=== PATIENT | female | born 1960 | race Caucasian/White ===

== ENCOUNTER 2019-06-07 14:48 | Inpatient (IN) | payer OTHER ==
[2019-06-07 17:21] VITALS: BMI 19.8
--- NOTE | 2019-06-07 18:28 | HP ---
CIWA Score Nausea/Vomitin (vomiting x 1) Muscle Tremors: 4-Moderate,w/Arms Extend Anxiety: 4-Mod. Anxious/Guarded Agitation: 3 Paroxysmal Sweats: 2 Orientation: 0-Oriented Tacttile Disturbances: 0-None Auditory Disturbances: 0-None Visual Disturbances: 0-None Headache: 2-Mild CIWA-Ar Total Score: 17 - Admission Criteria OASAS Guidelines: Admission for Medically Managed Detox: Requires at least one of the followin. CIWA greater than 12 2. Seizures within the past 24 hours 3. Delirium tremens within the past 24 hours 4. Hallucinations within the past 24 hours 5. Acute intervention needed for co occurring medical disorder 6. Acute intervention needed for co occurring psychiatric disorder 7. Severe withdrawal that cannot be handled at a lower level of care (continued vomiting, continued diarrhea, abnormal vital signs) requiring intravenous medication and/or fluids 8. Admission ROS [facility] Chief Complaint: Seeking admission to detox Allergies/Adverse Reactions: Allergies Allergy/AdvReac Type Severity Reaction Status Date / Time No Known Allergies Allergy Verified 06/07/19 17:03 History of Present Illness: 58 years old female with a long history of alcohol dependence is seeking admission to detox. Patient reports that her last detox was at [facility] in 1995. this is her first admission in [facility]. She reports that she fell on 06/03 and was treated at [place], [place] where had an X-ray of pelvis, CT scan of the head and echocardiogram. She has swelling at the back of her head, 10 stitches(sutures) to right chin, ecchymosis to the left lower side , and abrasion to the left outer arm. She has medical history of breast cancer , (S/P lumpectomy 2017, chemo. [id number], on herceptin XRT) psych. history of depression and anxiety. She denies suicide attempt/ suicidal ideation at this time. 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 Patient has stitches to the right leg that needs to be removed on Monday, June 10, 2019. Exam Limitations: No Limitations, Physical Impairment (ambulates with a cane) - Ebola screening Have you traveled outside of the country in the last 21 days: No Have you been sick,other than usual withdrawal symptoms: No Do you have a fever: No - Review of Systems Constitutional: Chills, Malaise, Changes in sleep, Unexplained wgt Loss (H/O breast Ca) EENT: reports: Sinus Pressure Respiratory: reports: No Symptoms reported Cardiac: reports: No Symptoms Reported GI: reports: Nausea, Poor Appetite, Poor Fluid Intake, Vomiting (x 1), Abdominal cramping : reports: No Symptoms Reported Musculoskeletal: reports: Joint Pain, Other (hip pain and right chin pain from a fall) Integumentary: reports: Dryness, Flushing Neuro: reports: Headache, Tremors Endocrine: reports: No Symptoms Reported Hematology: reports: No Symptoms Reported Psychiatric: reports: Mood/Affect Appropiate, Orientated x3, Anxious, Depressed Other Systems: Reviewed and Negative Patient History - Patient Medical History Hx Anemia: No Hx Asthma: No Hx Chronic Obstructive Pulmonary Disease (COPD): No Hx Cancer: Yes (Breast Cancer. On remission medication) Hx Cardiac Disorders: No Hx Congestive Heart Failure: No Hx Hypertension: No Hx Hypercholesterolemia: No Hx Pacemaker: No HX Cerebrovascular Accident: No Hx Seizures: No Hx Dementia: No Hx Diabetes: No Hx Gastrointestinal Disorders: No Hx Liver Disease: No Hx Genitourinary Disorders: No Hx Sexually Transmitted Disorders: No Hx Renal Disease (ESRD): No Hx Thyroid Disease: No Hx Human Immunodeficiency Virus (HIV): No (Negative May 2018) Hx Hepatitis C: No Hx Depression: Yes (Wellbutrin) Hx Suicide Attempt: No (Denies suicidal ideation) Hx Bipolar Disorder: No Hx Schizophrenia: No Other Medical History: Anxiety -Lexapro - Patient Surgical History Past Surgical History: Yes Hx Neurologic Surgery: No Hx Cataract Extraction: No Hx Cardiac Surgery: No Hx Lung Surgery: No Hx Breast Surgery: Yes (Lumpectomy 2016) Hx Breast Biopsy: Yes Hx Abdominal Surgery: No Hx Appendectomy: No Hx Cholecystectomy: No Hx Genitourinary Surgery: No Hx Section: No Hx Orthopedic Surgery: No Hx Hysterectomy: No Anesthesia Reaction: No - PPD History Previous Implant?: Yes Documented Results: Negative w/o proof Implanted On Prior [facility] Admission?: No PPD to be Administered?: Yes - Reproductive History Patient is a Female of Child Bearing Age (11 -55 yrs old): Yes LMP comment: Menopausal - Smoking Cessation Smoking history: Current some day smoker Have you smoked in the past 12 months: Yes Aproximately how many cigarettes per day: 2 Hx Chewing Tobacco Use: No Initiated information on smoking cessation: Yes 'Breaking Loose' booklet given: 06/07/19 - Substance & Tx. History Hx Alcohol Use: Yes Hx Substance Use: Yes Substance Use Type: Alcohol, Cocaine, Marijuana Hx Substance Use Treatment: Yes ([facility]) - Substances abused Alcohol Substance route: Oral Frequency: Daily Amount used: 5 ounces of vodka/ much more lately Age of first use: 17 Date of last use: 06/06/19 Marijuana/Hashish Substance route: Smoking Frequency: 3-6 times per week Amount used: 1 head of a ball Age of first use: 18 Date of last use: 06/07/19 Admission Physical Exam [facility] - Vital Signs Vital Signs: Vital Signs - 24 hr 06/07/19 06/07/19 17:13 17:29 Temperature 98.6 F 98.6 F Pulse Rate 111 H 111 H Respiratory 18 18 Rate Blood Pressure 150/97 150/97 - Physical General Appearance: Yes: Moderate Distress, Tremorous, Sweating, Anxious HEENTM: Yes: Nasal Congestion, Rhinorrhea Respiratory: Yes: Lungs Clear, Normal Breath Sounds, No Respiratory Distress Neck: Yes: Within Normal Limits Breast: Yes: Breast Exam Deferred, Surgical Scar (Lumpectomy left breast) Cardiology: Yes: Tachycardia Abdominal: Yes: Normal Bowel Sounds Genitourinary: Yes: Within Normal Limits Back: Yes: Normal Inspection Musculoskeletal: Yes: Muscle Pain, Other (hip pain and right chin pain from a fall) Extremities: Yes: Tremors Neurological: Yes: Within Normal Limits, Alert Integumentary: Yes: Warm Lymphatic: Yes: Within Normal Limits - Diagnostic (1) Alcohol dependence with withdrawal, uncomplicated Current Visit: Yes Status: Acute (2) Cannabis dependence with withdrawal Current Visit: Yes Status: Acute (3) Cancer of left breast Current Visit: Yes Status: Chronic Qualifiers: Estrogen receptor status: unspecified Patient sex: female (4) Nicotine dependence Current Visit: Yes Status: Chronic Qualifiers: Nicotine product type: cigarettes Substance use status: uncomplicated Qualified Code(s): F17.210 - Nicotine dependence, cigarettes, uncomplicated Cleared for Admission [facility] - Detox or Rehab [facility] Level of Care: Medically Managed Detox Regimen/Protocol: Librium Claeared for Rehab Admission: No Breathalyzer - Breathalyzer Breathalyzer: 0 Urine Drug Screen - Test Device Lot number: [id number] Expiration date: 03/21/21 - Control Is test valid?: Yes - Results Drug screen NEGATIVE: No Urine drug screen results: THC-Marijuana, BZO-Benzodiazepines Inpatient Rehab Admission - Rehab Decision to Admit Inpatient rehab admission?: No
[2019-06-07] MEDS ORDERED: hydrOXYzine PAMOATE 25 MG CAPSULE (FP) PO PRN (18:59)
[2019-06-07] MEDS ORDERED: BISMUTH SUBSALICYLATE 524 MG/30 ML UD PO PRN (18:59)
[2019-06-07] MEDS ORDERED: MAGNESIUM CITRATE 300 ML BOTTLE PO PRN (18:59)
[2019-06-07] MEDS ORDERED: ACETAMINOPHEN 325 MG TABLET (FP) PO PRN (18:59)
[2019-06-07] MEDS ORDERED: NICOTINE POLACRILEX 2 MG GUM BUC PRN (18:59)
[2019-06-07] MEDS ORDERED: MENTHOL/PHENOL 1 EACH UD MM PRN (18:59)
[2019-06-07] MEDS ORDERED: IBUPROFEN 400 MG TABLET (FP) PO PRN (18:59)
[2019-06-07] MEDS ORDERED: MAGNESIUM HYDROX 2400MG/30ML ORAL SUSPENSION 30 ML CUP PO PRN (18:59)
[2019-06-07] MEDS ORDERED: MAG HYDROX/AL HYDROX/SIMETH 30 ML UNIT-DOSE CUP PO PRN (18:59)
[2019-06-07] MEDS: chlordiazePOXIDE HCL 10 MG CAPSULE PO PRN (20:16)
[2019-06-07] MEDS ORDERED: BACITRACIN 15 GM TUBE TOPICAL OINTMENT TP SCH (22:00)
[2019-06-07] MEDS: BACITRACIN 0.9 GM PACKET TP SCH (22:01)
[2019-06-07] MEDS: THIAMINE HCL 100 MG TABLET (FP) PO SCH (22:01)
[2019-06-07] MEDS: MELATONIN 5 MG TABLETS PO PRN (22:02)
[2019-06-07] MEDS: chlordiazePOXIDE HCL 25 MG CAPSULE PO SCH (22:02)
[2019-06-08] MEDS: chlordiazePOXIDE HCL 25 MG CAPSULE PO SCH ×3 (05:41→22:04)
[2019-06-08] MEDS: BACITRACIN 0.9 GM PACKET TP SCH ×2 (09:58→22:04)
[2019-06-08] MEDS: chlordiazePOXIDE HCL 10 MG CAPSULE PO PRN (09:58)
[2019-06-08] MEDS: NICOTINE 14 MG/24 HOURS TOPICAL PATCH TD SCH (09:59)
[2019-06-08] MEDS: PRENATAL VITAMINS W/ FOLIC ACID TABLET (FP) PO SCH (09:59)
[2019-06-08 10:29] LABS: HEMATOCRIT 32.5 % (32.4-45.2); HEMOGLOBIN 10.8 GM/dL (10.7-15.3); MCHC 33.4 g/dl (32.0-36.0); MEAN CELL VOLUME 101.8 fl (80-96); MEAN PLT VOLUME 7.4 fl (7.5-11.1); PLATELET COUNT 208 K/MM3 (134-434); RBC 3.19 M/mm3 (3.60-5.2); RDW 15.2 % (11.6-15.6); WHITE BLOOD COUNT 4.7 K/mm3 (4.0-10.0)
[2019-06-08 10:39] LABS: ALBUMIN 3.1 g/dl (3.4-5.0); BILIRUBIN,TOTAL 0.5 mg/dL (0.2-1); BLOOD UREA NITROGEN 12.8 mg/dL (7-18); CALCIUM 8.4 mg/dL (8.5-10.1); CREATININE 0.6 mg/dL (0.55-1.3); POTASSIUM 4.1 mmol/L (3.5-5.1); TOT PROT 5.5 g/dl (6.4-8.2)
--- NOTE | 2019-06-08 10:45 | EKG ---
Test Reason : Blood Pressure : / mmHG Vent. Rate : 097 BPM Atrial Rate : 097 BPM P-R Int : 114 ms QRS Dur : 086 ms QT Int : 378 ms P-R-T Axes : 036 049 053 degrees QTc Int : 480 ms NORMAL SINUS RHYTHM PROLONGED QT ABNORMAL ECG NO PREVIOUS ECGS AVAILABLE Confirmed by Pino Rojas MD ([id number]) on 06/08/2019 10:44:39 AM Referred By: TALIA Confirmed By:Pino Rojas MD
--- NOTE | 2019-06-08 12:32 | PN ---
S CIWA - CIWA Score Nausea/Vomitin-Mild Nausea/No Vomiting Muscle Tremors: 4-Moderate,w/Arms Extend Anxiety: 4-Mod. Anxious/Guarded Agitation: 0-Normal Activity Paroxysmal Sweats: 2 Orientation: 0-Oriented Tacttile Disturbances: 1-Very Mild Itch/Numbness Auditory Disturbances: 0-None Visual Disturbances: 1-Very Mild Sensitivity Headache: 0-None Present CIWA-Ar Total Score: 13 [facility] Progress Note (SOAP) Subjective: 58 years old female admitted on 06/07/19 for alcohol withdrawal sx management treating with libruim regiment ambulating on hallway social with peers in day room encourage the patient using cane when walking around the hallway patient fell around 06/03/19 left inferior orbital bruise, left fore arm and right anterior skin abrasion encourage bacitracine ointment keep area clear and dry Objective: 06/08/19 12:39 Vital Signs Temperature 97.0 F L 06/08/19 09:15 Pulse Rate 86 06/08/19 09:15 Respiratory Rate 16 06/08/19 09:15 Blood Pressure 119/82 06/08/19 09:15 O2 Sat by Pulse Oximetry (%) Laboratory Last Values WBC 4.7 K/mm3 (4.0-10.0) 06/08/19 07:45 RBC 3.19 M/mm3 (3.60-5.2) L 06/08/19 07:45 Hgb 10.8 GM/dL (10.7-15.3) 06/08/19 07:45 Hct 32.5 % (32.4-45.2) 06/08/19 07:45 MCV 101.8 fl (80-96) H 06/08/19 07:45 MCH 34.0 pg (25.7-33.7) H 06/08/19 07:45 MCHC 33.4 g/dl (32.0-36.0) 06/08/19 07:45 RDW 15.2 % (11.6-15.6) 06/08/19 07:45 Plt Count 208 K/MM3 (134-434) 06/08/19 07:45 MPV 7.4 fl (7.5-11.1) L 06/08/19 07:45 Sodium 141 mmol/L (136-145) 06/08/19 07:45 Potassium 4.1 mmol/L (3.5-5.1) 06/08/19 07:45 Chloride 107 mmol/L (98-107) 06/08/19 07:45 Carbon Dioxide 30 mmol/L (21-32) 06/08/19 07:45 Anion Gap 4 MMOL/L (8-16) L 06/08/19 07:45 BUN 12.8 mg/dL (7-18) 06/08/19 07:45 Creatinine 0.6 mg/dL (0.55-1.3) 06/08/19 07:45 Est GFR (CKD-EPI)AfAm 114.82 06/08/19 07:45 Est GFR (CKD-EPI)NonAf 99.07 06/08/19 07:45 Random Glucose 104 mg/dL (74-106) 06/08/19 07:45 Calcium 8.4 mg/dL (8.5-10.1) L 06/08/19 07:45 Total Bilirubin 0.5 mg/dL (0.2-1) 06/08/19 07:45 AST 17 U/L (15-37) 06/08/19 07:45 ALT 15 U/L (13-61) 06/08/19 07:45 Alkaline Phosphatase 45 U/L (45-117) 06/08/19 07:45 Total Protein 5.5 g/dl (6.4-8.2) L 06/08/19 07:45 Albumin 3.1 g/dl (3.4-5.0) L 06/08/19 07:45 RPR Titer Nonreactive (NONREACTIVE) 06/08/19 07:45 lab noted Assessment: 06/08/19 12:39 alcohol withdrawal Plan: librium regiment
--- NOTE | 2019-06-08 13:23 | EKG ---
Test Reason : Blood Pressure : / mmHG Vent. Rate : 073 BPM Atrial Rate : 073 BPM P-R Int : 132 ms QRS Dur : 082 ms QT Int : 410 ms P-R-T Axes : 053 055 057 degrees QTc Int : 451 ms NORMAL SINUS RHYTHM NORMAL ECG WHEN COMPARED WITH ECG OF 07-JUN-2019 19:16, NONSPECIFIC T WAVE ABNORMALITY NO LONGER EVIDENT IN ANTERIOR LEADS Confirmed by MD Art, Kenn ([id number]) on 06/08/2019 1:22:51 PM Referred By: Confirmed By:Kenn Cordova MD
[2019-06-08] MEDS: PATIENT'S OWN MEDICATION (NON-FORMULARY) (Anastrozole [Arimidex -] 1 MG) PO SCH (14:47)
[2019-06-08] MEDS: ACETAMINOPHEN 325 MG TABLET (FP) PO PRN (15:11)
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
[2019-06-08] MEDS ORDERED: GABAPENTIN 300 MG CAPSULE PO SCH (22:00)
[2019-06-08] MEDS: THIAMINE HCL 100 MG TABLET (FP) PO SCH (22:04)
[2019-06-08] MEDS: MELATONIN 5 MG TABLETS PO PRN (23:58)
[2019-06-09] MEDS: chlordiazePOXIDE 5 MG CAPSULE PO SCH ×3 (05:51→22:12)
--- NOTE | 2019-06-09 09:36 | PN ---
S Progress Note Note: Psychiatry Attending's note (follow-up) : [employer] Repairer contacted pharmacist at [facility] # [id number]. For verification of medications ([phone]). Confirmed refills for : gabapentin 300 mg/hs trazodone 50 mg/hs wellbutrin XL 300 mg/hs lexapro 10 mg/day All filled in May 2019. Contact made this morning.
[2019-06-09] MEDS: ESCITALOPRAM OXALATE 10 MG TABLET PO SCH (10:35)
[2019-06-09] MEDS: PRENATAL VITAMINS W/ FOLIC ACID TABLET (FP) PO SCH (10:35)
[2019-06-09] MEDS: PATIENT'S OWN MEDICATION (NON-FORMULARY) (Anastrozole [Arimidex -] 1 MG) PO SCH (10:35)
[2019-06-09] MEDS: BACITRACIN 0.9 GM PACKET TP SCH ×2 (10:35→22:12)
[2019-06-09] MEDS: NICOTINE 14 MG/24 HOURS TOPICAL PATCH TD SCH (10:37)
--- NOTE | 2019-06-09 11:48 | PN ---
S CIWA - CIWA Score Nausea/Vomitin-Mild Nausea/No Vomiting Muscle Tremors: 3 Anxiety: 3 Agitation: 0-Normal Activity Paroxysmal Sweats: 2 Orientation: 0-Oriented Tacttile Disturbances: 0-None Auditory Disturbances: 0-None Visual Disturbances: 0-None Headache: 1-Very Mild CIWA-Ar Total Score: 10 S Progress Note (SOAP) Subjective: 58 years old female admitted on 06/07/19 for alcohol withdrawal sx management treating with librium detox regiment ambulating without cane encourage the patient to use cane when ambulating on the unit requests to be seen by a psychiatrist that "I want my trazadone" psychiatrist progress noted is appreciated psychiatric consultation referral for psychotropic medication Objective: 06/09/19 11:51 Vital Signs Temperature 96.4 F L 06/09/19 08:31 Pulse Rate 75 06/09/19 08:31 Respiratory Rate 18 06/09/19 08:31 Blood Pressure 109/64 06/09/19 08:31 O2 Sat by Pulse Oximetry (%) Laboratory Last Values WBC 4.7 K/mm3 (4.0-10.0) 06/08/19 07:45 RBC 3.19 M/mm3 (3.60-5.2) L 06/08/19 07:45 Hgb 10.8 GM/dL (10.7-15.3) 06/08/19 07:45 Hct 32.5 % (32.4-45.2) 06/08/19 07:45 MCV 101.8 fl (80-96) H 06/08/19 07:45 MCH 34.0 pg (25.7-33.7) H 06/08/19 07:45 MCHC 33.4 g/dl (32.0-36.0) 06/08/19 07:45 RDW 15.2 % (11.6-15.6) 06/08/19 07:45 Plt Count 208 K/MM3 (134-434) 06/08/19 07:45 MPV 7.4 fl (7.5-11.1) L 06/08/19 07:45 Sodium 141 mmol/L (136-145) 06/08/19 07:45 Potassium 4.1 mmol/L (3.5-5.1) 06/08/19 07:45 Chloride 107 mmol/L (98-107) 06/08/19 07:45 Carbon Dioxide 30 mmol/L (21-32) 06/08/19 07:45 Anion Gap 4 MMOL/L (8-16) L 06/08/19 07:45 BUN 12.8 mg/dL (7-18) 06/08/19 07:45 Creatinine 0.6 mg/dL (0.55-1.3) 06/08/19 07:45 Est GFR (CKD-EPI)AfAm 114.82 06/08/19 07:45 Est GFR (CKD-EPI)NonAf 99.07 06/08/19 07:45 Random Glucose 104 mg/dL (74-106) 06/08/19 07:45 Calcium 8.4 mg/dL (8.5-10.1) L 06/08/19 07:45 Total Bilirubin 0.5 mg/dL (0.2-1) 06/08/19 07:45 AST 17 U/L (15-37) 06/08/19 07:45 ALT 15 U/L (13-61) 06/08/19 07:45 Alkaline Phosphatase 45 U/L (45-117) 06/08/19 07:45 Total Protein 5.5 g/dl (6.4-8.2) L 06/08/19 07:45 Albumin 3.1 g/dl (3.4-5.0) L 06/08/19 07:45 RPR Titer Nonreactive (NONREACTIVE) 06/08/19 07:45 lab noted Assessment: 06/09/19 11:51 alcohol withdrawal Plan: librium regiment
[2019-06-09] MEDS: ACETAMINOPHEN 325 MG TABLET (FP) PO PRN (12:59)
[2019-06-09] MEDS ORDERED: GABAPENTIN 300 MG CAPSULE PO SCH (13:17)
[2019-06-09] MEDS: FERROUS SO4 325 MG TABLET (FP) PO SCH (14:26)
--- NOTE | 2019-06-09 16:27 | PN ---
Psychiatric Progress Note Vital Signs: Vital Signs Period Temp Pulse Resp BP Sys/Valderrama Pulse Ox Last 24 Hr 96.4 F-98.0 F 75-89 16-18 109-123/64-83 Date of Session: 06/09/19 Chief Complaint:: " Can we go over my medications." HPI: Patient admitted to for alcohol and nicotine dependence. Consultation ordered to address insomnia. ROS: Patient is calm + cooperative, alert + oriented X3. Current Medications: Active Medications Generic Name Dose Route Start Last Admin Trade Name Freq PRN Reason Stop Dose Admin Acetaminophen 650 mg 06/07/19 18:59 06/09/19 12:59 Tylenol - PO 650 mg Q6H PRN Administration PAIN LEVEL 4 - 6 Acetaminophen 650 mg 06/07/19 18:59 Tylenol - PO Q6H PRN FEVER Al Hydroxide/Mg Hydroxide 30 ml 06/07/19 18:59 Mylanta Oral Suspension - PO Q6H PRN DYSPEPSIA Bacitracin 0.9 gm 06/07/19 22:00 06/09/19 10:35 Bacitracin - TP 0.9 gm BID NANI Administration Bismuth Subsalicylate 524 mg 06/07/19 18:59 Pepto-Bismol - PO Q1H PRN DIARRHEA Chlordiazepoxide HCl 10 mg 06/10/19 00:00 Librium - PO 06/10/19 23:59 Q12H PRN Signs/symptoms of Withdrawal Chlordiazepoxide HCl 10 mg 06/07/19 19:06 06/08/19 09:58 Librium - PO 06/09/19 23:59 10 mg Q8H PRN Administration Signs/symptoms of Withdrawal Chlordiazepoxide HCl 15 mg 06/09/19 05:00 06/09/19 12:55 Librium - PO 06/09/19 21:01 15 mg Q8H NANI Administration Chlordiazepoxide HCl 10 mg 06/10/19 05:00 Librium - PO 06/10/19 21:01 Q8H NANI Chlordiazepoxide HCl 10 mg 06/11/19 05:00 Librium - PO 06/11/19 05:01 ONCE ONE Escitalopram Oxalate 10 mg 06/09/19 10:00 06/09/19 10:35 Lexapro - PO 10 mg DAILY NANI Administration Eucalyptus/Menthol/Phenol/Sorbitol 1 each 06/07/19 18:59 Cepastat Lozenge - MM 06/13/19 19:00 Q4H PRN SORE THROAT Ferrous Sulfate 325 mg 06/09/19 13:15 06/09/19 14:26 Feosol - PO 325 mg DAILY NANI Administration Gabapentin 400 mg 06/09/19 13:17 Neurontin - PO HS NANI Hydroxyzine Pamoate 25 mg 06/07/19 18:59 Vistaril - PO 06/13/19 19:00 Q6H PRN For Anxiety Ibuprofen 400 mg 06/07/19 18:59 Motrin - PO Q6H PRN PAIN LEVEL 1 - 3 Magnesium Citrate 300 ml 06/07/19 18:59 Citroma - PO Q48H PRN CONSTIPATION Magnesium Hydroxide 30 ml 06/07/19 18:59 Milk Of Magnesia - PO PRN PRN CONSTIPATION Melatonin 5 mg 06/07/19 22:00 06/08/19 23:58 Melatonin PO 5 mg HS PRN Administration INSOMNIA Methocarbamol 500 mg 06/07/19 18:59 Robaxin - PO 06/13/19 19:00 Q6H PRN MUSCLE SPASMS Nicotine 14 mg 06/08/19 10:00 06/09/19 10:37 Nicoderm Patch - TD Not Given DAILY [facility] Nicotine Polacrilex 2 mg 06/07/19 18:59 Nicorette Gum - BUC Q2H PRN NICOTINE REPLACEMENT RX Non-Formulary Medication 1 mg 06/08/19 10:00 06/09/19 10:35 Anastrozole [Arimidex -] PO 1 mg DAILY NANI Administration Multivit/Folic Acid/Iron 1 tab 06/08/19 10:00 06/09/19 10:35 Vitamins ([facility]) - PO 1 tab DAILY NANI Administration Thiamine HCl 100 mg 06/07/19 22:00 06/08/19 22:04 Vitamin B1 - PO 100 mg HS [facility] Administration Trazodone HCl 50 mg 06/09/19 22:00 Desyrel - PO HS [facility] Medication(s) Change(s): Yes. Will add Trazodone 50mg HS. Current Side Effect: No Lab tests ordered: No Lab tests reviewed: Yes Provider note:: Patient seen by Dr. Almonte for intial psychiatric consultation. Dr. Almonte note read and appreciated. Patient requesting trazodone for insomnia. Trazodone dose was held upon intial consultation due to risk of oversedation. Patient reports poor sleep last night. Patient observed to be fully awake, ambulating on unit and socializing with her peers. Will order Trazodone 50mg HS. Benefits and side effects discussed. Verbal consent given. Total face to face time:: 25 Mental Status Exam - Mental Status Exam Alert and Oriented to: Time, Place, Person Cognitive Function: Good Patient Appearance: Well Groomed Mood: Euthymic Affect: Mood Congruent Patient Behavior: Appropriate, Cooperative Speech Pattern: Appropriate Voice Loudness: Normal Thought Process: Intact, Goal Oriented Thought Disorder: Not Present Hallucinations: Denies Suicidal Ideation: Denies Homicidal Ideation: Denies Insight/Judgement: Poor Sleep: Poorly Appetite: Fair Muscle strength/Tone: Normal Gait/Station: Normal Psychiatric Treatment Plan - Problem List (1) Alcohol dependence with withdrawal, uncomplicated Current Visit: Yes (2) Cannabis dependence Current Visit: Yes (3) Insomnia Current Visit: Yes (4) Nicotine dependence Current Visit: Yes Qualifiers: Nicotine product type: cigarettes Substance use status: uncomplicated Qualified Code(s): F17.210 - Nicotine dependence, cigarettes, uncomplicated (5) Substance induced mood disorder Current Visit: Yes (6) History of depression Current Visit: Yes
[2019-06-09] MEDS: THIAMINE HCL 100 MG TABLET (FP) PO SCH ×2 (22:11→23:29)
[2019-06-09] MEDS: traZODone HCL 50 MG TABLET (FP) PO SCH (22:12)
[2019-06-09] MEDS ORDERED: GABAPENTIN 400 MG CAPSULE PO SCH (22:15)
[2019-06-09] MEDS: MELATONIN 5 MG TABLETS PO PRN (22:17)
[2019-06-09] MEDS: GABAPENTIN 400 MG CAPSULE PO SCH (22:38)
[2019-06-10] MEDS ORDERED: chlordiazePOXIDE HCL 10 MG CAPSULE PO PRN
[2019-06-10] MEDS: chlordiazePOXIDE HCL 10 MG CAPSULE PO SCH ×3 (05:22→22:14)
[2019-06-10] MEDS: FERROUS SO4 325 MG TABLET (FP) PO SCH (10:19)
[2019-06-10] MEDS: PRENATAL VITAMINS W/ FOLIC ACID TABLET (FP) PO SCH (10:19)
[2019-06-10] MEDS: ESCITALOPRAM OXALATE 10 MG TABLET PO SCH (10:19)
[2019-06-10] MEDS: NICOTINE 14 MG/24 HOURS TOPICAL PATCH TD SCH (10:20)
[2019-06-10] MEDS: BACITRACIN 0.9 GM PACKET TP SCH ×2 (10:20→22:14)
[2019-06-10] MEDS: PATIENT'S OWN MEDICATION (NON-FORMULARY) (Anastrozole [Arimidex -] 1 MG) PO SCH (10:21)
--- NOTE | 2019-06-10 11:53 | PN ---
Psychiatric Progress Note Vital Signs: Vital Signs Period Temp Pulse Resp BP Sys/Valderrama Pulse Ox Last 24 Hr 96.1 F-97.6 F 64-85 14-19 99-113/53-75 Date of Session: 06/10/19 Chief Complaint:: " Will I get my wellbutrin ? " HPI: Day 4 of detoxification treatment. Patient is doing well. No adverse effects from medication regimen. Follow-up is for re-evaluation of medications. ROS: Unremarkable. Patient is observed as ambulatory (with and without cane). Current Medications: Active Medications Generic Name Dose Route Start Last Admin Trade Name Freq PRN Reason Stop Dose Admin Acetaminophen 650 mg 06/07/19 18:59 06/09/19 12:59 Tylenol - PO 650 mg Q6H PRN Administration PAIN LEVEL 4 - 6 Acetaminophen 650 mg 06/07/19 18:59 Tylenol - PO Q6H PRN FEVER Al Hydroxide/Mg Hydroxide 30 ml 06/07/19 18:59 Mylanta Oral Suspension - PO Q6H PRN DYSPEPSIA Bacitracin 0.9 gm 06/07/19 22:00 06/10/19 10:20 Bacitracin - TP 0.9 gm BID NANI Administration Bismuth Subsalicylate 524 mg 06/07/19 18:59 Pepto-Bismol - PO Q1H PRN DIARRHEA Bupropion HCl 150 mg 06/10/19 12:00 Wellbutrin Xl - PO DAILY NANI Chlordiazepoxide HCl 10 mg 06/10/19 00:00 Librium - PO 06/10/19 23:59 Q12H PRN Signs/symptoms of Withdrawal Chlordiazepoxide HCl 10 mg 06/10/19 05:00 06/10/19 05:22 Librium - PO 06/10/19 21:01 10 mg Q8H NANI Administration Chlordiazepoxide HCl 10 mg 06/11/19 05:00 Librium - PO 06/11/19 05:01 ONCE ONE Escitalopram Oxalate 10 mg 06/09/19 10:00 06/10/19 10:19 Lexapro - PO 10 mg DAILY NANI Administration Eucalyptus/Menthol/Phenol/Sorbitol 1 each 06/07/19 18:59 Cepastat Lozenge - MM 06/13/19 19:00 Q4H PRN SORE THROAT Ferrous Sulfate 325 mg 06/09/19 13:15 06/10/19 10:19 Feosol - PO 325 mg DAILY NANI Administration Gabapentin 400 mg 06/09/19 22:45 06/09/19 22:38 Neurontin - PO 400 mg HS NANI Administration Hydroxyzine Pamoate 25 mg 06/07/19 18:59 06/09/19 22:40 Vistaril - PO 06/13/19 19:00 25 mg Q6H PRN Administration For Anxiety Ibuprofen 400 mg 06/07/19 18:59 Motrin - PO Q6H PRN PAIN LEVEL 1 - 3 Magnesium Citrate 300 ml 06/07/19 18:59 Citroma - PO Q48H PRN CONSTIPATION Magnesium Hydroxide 30 ml 06/07/19 18:59 Milk Of Magnesia - PO PRN PRN CONSTIPATION Melatonin 5 mg 06/07/19 22:00 06/09/19 22:17 Melatonin PO 5 mg HS PRN Administration INSOMNIA Methocarbamol 500 mg 06/07/19 18:59 Robaxin - PO 06/13/19 19:00 Q6H PRN MUSCLE SPASMS Nicotine 14 mg 06/08/19 10:00 06/10/19 10:20 Nicoderm Patch - TD Not Given DAILY NANI Nicotine Polacrilex 2 mg 06/07/19 18:59 Nicorette Gum - BUC Q2H PRN NICOTINE REPLACEMENT RX Non-Formulary Medication 1 mg 06/08/19 10:00 06/10/19 10:21 Anastrozole [Arimidex -] PO 1 mg DAILY NANI Administration Multivit/Folic Acid/Iron 1 tab 06/08/19 10:00 06/10/19 10:19 Vitamins (Sjr) - PO 1 tab DAILY NANI Administration Thiamine HCl 100 mg 06/07/19 22:00 06/09/19 23:29 Vitamin B1 - PO Not Given HS NANI Trazodone HCl 50 mg 06/09/19 22:00 06/09/19 22:12 Desyrel - PO 50 mg HS NANI Administration Medication(s) Change(s): Wellbutrin XL 150 mg po daily. Resumed at patient's request. Side effects/benefits discussed with patient. Made aware of risk of seizures. Ms May agrees with this plan of care. Current Side Effect: No Lab tests ordered: No Lab tests reviewed: Yes Provider note:: Chart reviewed. Note from sprinkler fitter Ren : read and appreciated. Patient is interviewed (medical students in attendance, with patient's permission). Patient reports feeling well. Considerably less anxious and more cooperative. Appears well rested. Walks with steady gait. Observed as active and sociable. Goal-directed. Euthymic. Not suicidal or homicidal. Cognitively intact. Stable mental status. See MSE report for details. Unremarkable hospital course. Total face to face time:: 25 Mental Status Exam - Mental Status Exam Alert and Oriented to: Time, Place, Person Cognitive Function: Good Patient Appearance: Well Groomed Mood: Hopeful, Euthymic Affect: Appropriate, Normal Range Patient Behavior: Appropriate, Cooperative Speech Pattern: Clear, Appropriate Voice Loudness: Normal Thought Process: Intact, Goal Oriented Thought Disorder: Not Present Hallucinations: Denies Suicidal Ideation: Denies Homicidal Ideation: Denies Insight/Judgement: Fair Sleep: Well Appetite: Good Gait/Station: Normal Psychiatric Treatment Plan - Problem List (1) Alcohol dependence with withdrawal, uncomplicated Current Visit: Yes Comment: . (2) Cannabis dependence Current Visit: Yes Comment: . (3) Nicotine dependence Current Visit: Yes Qualifiers: Nicotine product type: cigarettes Substance use status: uncomplicated Qualified Code(s): F17.210 - Nicotine dependence, cigarettes, uncomplicated Comment: . (4) Substance induced mood disorder Current Visit: Yes Comment: . (5) History of depression Current Visit: Yes Comment: . (6) Insomnia Current Visit: Yes Comment: .
[2019-06-10] MEDS: ACETAMINOPHEN 325 MG TABLET (FP) PO PRN (13:13)
[2019-06-10] MEDS: METHOCARBAMOL 500 MG TABLET PO PRN ×2 (13:27→22:18)
--- NOTE | 2019-06-10 14:33 | PN ---
S CIWA - CIWA Score Nausea/Vomitin-Mild Nausea/No Vomiting Muscle Tremors: 1-None Visible, but [place] Anxiety: 1-Mildly Anxious Agitation: 1-Slight > Activity Paroxysmal Sweats: No Perspiration Orientation: 0-Oriented Tacttile Disturbances: 1-Very Mild Itch/Numbness Auditory Disturbances: 0-None Visual Disturbances: 0-None Headache: 1-Very Mild CIWA-Ar Total Score: 6 [facility] Progress Note (SOAP) Subjective: alert,irritable,interrupted sleep, Objective: 06/10/19 14:31 Vital Signs Temperature 97.9 F 06/10/19 12:52 Pulse Rate 76 06/10/19 12:52 Respiratory Rate 18 06/10/19 12:52 Blood Pressure 102/65 06/10/19 12:52 O2 Sat by Pulse Oximetry (%) Assessment: 06/10/19 14:32 withdrawal symptom Plan: continue detox lbrium regimen,discharge in am
[2019-06-10] MEDS: THIAMINE HCL 100 MG TABLET (FP) PO SCH (22:15)
[2019-06-10] MEDS: traZODone HCL 50 MG TABLET (FP) PO SCH (22:15)
[2019-06-10] MEDS: GABAPENTIN 400 MG CAPSULE PO SCH (22:15)
[2019-06-10] MEDS: MELATONIN 5 MG TABLETS PO PRN (22:17)
[2019-06-11] MEDS ORDERED: chlordiazePOXIDE HCL 10 MG CAPSULE PO ONE (05:00)
[2019-06-11 06:39] VITALS: TEMP 97.1
[2019-06-11 07:55] VITALS: BP 104/65; PULSE 109
--- NOTE | 2019-06-11 12:42 | DS ---
[facility] Detox Discharge Summary Admission Date: 06/07/19 Discharge Date: 06/11/19 - History Present History: Alcohol Dependence, Cannabis Dependence, Cocaine Dependence Additional Comments: Pt is medically cleared and discharged today. Pt completed the detox protocol. Pt is encouraged to follow-up with an outpatient CD program and also to follow- up with her pmd. Pt verbalized understanding of the information given. Pt is alert and oriented x3 and in no respiratory distress. Pertinent Past History: H/o alcohol, cocaine, and cannabis use disorder. - Physical Exam Results Vital Signs: Vital Signs Temperature 97.1 F L 06/11/19 07:47 Pulse Rate 109 H 06/11/19 07:47 Respiratory Rate 18 06/11/19 07:47 Blood Pressure 104/65 06/11/19 07:47 O2 Sat by Pulse Oximetry (%) Vital Signs 06/11/19 06/11/19 05:34 07:47 Temperature 97.1 F L 97.1 F L Pulse Rate 75 109 H Respiratory 18 18 Rate Blood Pressure 93/87 104/65 Laboratory Last Values WBC 4.7 K/mm3 (4.0-10.0) 06/08/19 07:45 RBC 3.19 M/mm3 (3.60-5.2) L 06/08/19 07:45 Hgb 10.8 GM/dL (10.7-15.3) 06/08/19 07:45 Hct 32.5 % (32.4-45.2) 06/08/19 07:45 MCV 101.8 fl (80-96) H 06/08/19 07:45 MCH 34.0 pg (25.7-33.7) H 06/08/19 07:45 MCHC 33.4 g/dl (32.0-36.0) 06/08/19 07:45 RDW 15.2 % (11.6-15.6) 06/08/19 07:45 Plt Count 208 K/MM3 (134-434) 06/08/19 07:45 MPV 7.4 fl (7.5-11.1) L 06/08/19 07:45 Sodium 141 mmol/L (136-145) 06/08/19 07:45 Potassium 4.1 mmol/L (3.5-5.1) 06/08/19 07:45 Chloride 107 mmol/L (98-107) 06/08/19 07:45 Carbon Dioxide 30 mmol/L (21-32) 06/08/19 07:45 Anion Gap 4 MMOL/L (8-16) L 06/08/19 07:45 BUN 12.8 mg/dL (7-18) 06/08/19 07:45 Creatinine 0.6 mg/dL (0.55-1.3) 06/08/19 07:45 Est GFR (CKD-EPI)AfAm 114.82 06/08/19 07:45 Est GFR (CKD-EPI)NonAf 99.07 06/08/19 07:45 Random Glucose 104 mg/dL (74-106) 06/08/19 07:45 Calcium 8.4 mg/dL (8.5-10.1) L 06/08/19 07:45 Total Bilirubin 0.5 mg/dL (0.2-1) 06/08/19 07:45 AST 17 U/L (15-37) 06/08/19 07:45 ALT 15 U/L (13-61) 06/08/19 07:45 Alkaline Phosphatase 45 U/L (45-117) 06/08/19 07:45 Total Protein 5.5 g/dl (6.4-8.2) L 06/08/19 07:45 Albumin 3.1 g/dl (3.4-5.0) L 06/08/19 07:45 Vitamin B12 367 pg/ml (193-986) 06/10/19 07:25 RPR Titer Nonreactive (NONREACTIVE) 06/08/19 07:45 Labs noted. Pertinent Admission Physical Exam Findings: withdrawal symptoms. - Treatment Hospital Course: Detox Protocol Followed, Detoxed Safely, Responded well, Discharged Condition Good - Medication Discharge Medications: Ambulatory Orders Anastrozole [Arimidex -] 1 mg PO DAILY 06/07/19 Bupropion HCl [Wellbutrin Xl] 300 mg PO DAILY 06/07/19 Disulfiram [Antabuse] 250 mg PO DAILY 06/07/19 Escitalopram Oxalate [Lexapro -] 10 mg PO DAILY 06/07/19 Gabapentin 300 mg PO HS 06/07/19 traZODone HCL [Trazodone HCl] 50 mg PO HS 06/07/19 - Diagnosis (1) Alcohol dependence with withdrawal, uncomplicated Status: Acute (2) Cannabis dependence with withdrawal Status: Chronic (3) Cancer of left breast Status: Chronic Qualifiers: Estrogen receptor status: unspecified Patient sex: female (4) Nicotine dependence Status: Chronic Qualifiers: Nicotine product type: cigarettes Substance use status: uncomplicated Qualified Code(s): F17.210 - Nicotine dependence, cigarettes, uncomplicated - AMA Did Patient Leave Against Medical Advice: No
== END 2019-06-11 08:50 | disposition home or self-care (01) | DRG 897 ==
LOC: YASAS 14:48 → Y3N 19:37
PROVIDERS: ADMIT Allergy & Immunology; ATTEND Allergy & Immunology
PROC: HZ2ZZZZ Detoxification Services for Substance Abuse Treatment (ICD-10-PCS; principal; 2019-06-07)
DX: F10.230 Alcohol dependence with withdrawal, uncomplicated (principal); F14.20 Cocaine dependence, uncomplicated; Z68.1 Body mass index [BMI] 19.9 or less, adult; F12.20 Cannabis dependence, uncomplicated; F17.210 Nicotine dependence, cigarettes, uncomplicated; F19.24 Other psychoactive substance dependence with psychoactive substance-induced mood disorder; F41.9 Anxiety disorder, unspecified; F32.9 Major depressive disorder, single episode, unspecified; G47.00 Insomnia, unspecified; C50.912 Malignant neoplasm of unspecified site of left female breast; R63.4 Abnormal weight loss; R29.6 Repeated falls; Z91.410 Personal history of adult physical and sexual abuse
CPT/HCPCS: 36415; 80053; 82607; 85027; 86593; 93005; 93010